=== PATIENT | male | born 1965 | race Caucasian/White ===

== ENCOUNTER 2023-10-15 10:02 | Emergency (ER) | payer OTHER ==
[~2023-10-15] VITALS: Ht 180.3 cm; Wt 86.2 kg
[~2023-10-15 10:02] MED LIST: ALBU90OI61 INH; MULVITA PO
[2023-10-15] MEDS ORDERED: NS 1,000 ML IV SCH (10:45)
[2023-10-15 10:56] LABS: BASOPHILS ABSOLUTE AUTO 0.06 K/mm3 (0.00-0.23); BASOPHILS PERCENT AUTO 0 % (0-2); EOSINOPHILS ABSOLUTE AUTO 0.11 K/mm3 (0.00-0.68); EOSINOPHILS PERCENT AUTO 1 % (0-6); Hematocrit 36.3 % (37.0-53.0); Hemoglobin 11.9 g/dL (13.5-17.5); IMMATURE GRAN PERCENT AUTO 1 % (0-1); LYMPHOCYTES ABSOLUTE AUTO 2.22 K/mm3 (0.84-5.20); LYMPHOCYTES PERCENT AUTO 15 % (21-46); MONOCYTES ABSOLUTE AUTO 0.89 K/mm3 (0.16-1.47); MONOCYTES PERCENT AUTO 6 % (4-13); Mean Corpuscular HGB 28.3 pg (26.0-34.0); Mean Corpuscular HGB Conc 32.8 g/dL (31.5-36.5); Mean Corpuscular Volume 86 fL (80-100); Mean Platelet Volume 9.2 fL (9.1-12.4); NEUTROPHILS ABSOLUTE AUTO 10.99 K/mm3 (1.96-9.15); NEUTROPHILS PERCENT AUTO 77 % (41-73); Platelet Count 499 K/mm3 (150-400); RDW Coefficient Variation 14.3 % (11.7-14.2); RDW Standard Deviation 45.2 fL (35.1-46.3); Red Blood Cell Count 4.21 M/mm3 (4.30-5.90); White Blood Cell Count 14.37 K/mm3 (4.00-11.30)
[2023-10-15] MEDS ORDERED: Mag Hydrox/AL Hydrox/Simeth 30 ML UDC PO ONE (11:10)
[2023-10-15] MEDS ORDERED: Lidocaine 2% Viscous Soln 15 ML UDC PO ONE (11:10)
[2023-10-15 11:20] LABS: Albumin, Blood 3.2 g/dL (3.4-5.0); Bilirubin, Total 0.5 mg/dL (0.1-1.0); Bun/Creatinine Ratio 61.7 (12.0-20.0); Creatinine, Blood 0.96 mg/dL (0.60-1.20); Globulin, Blood 3.1 g/dL (2.2-4.0); Magnesium, Blood 2.3 mg/dL (1.6-2.4); Total Protein, Blood 6.3 g/dL (6.4-8.2)
[2023-10-15] MEDS ORDERED: Amphetamine Sal20 MG PO (11:55)
[2023-10-15] MEDS ORDERED: NAPROXEN500 MG PO (11:55)
[2023-10-15 13:15] VITALS: BP 127/83
[2023-10-15] MEDS ORDERED: TESTOSTERO200 MG/1 M IM (16:32)
[2023-10-16] MEDS ORDERED: PANT40 PO (08:08)
== END 2023-10-15 14:32 | disposition home or self-care (01) ==
LOC: ER 10:02
PROVIDERS: Physician Assistant
DX: R55 Syncope and collapse (principal)
CPT/HCPCS: 80053; 83690; 83735; 84484; 85025; 93005; 93010; 96360; 99284-25; A9270; J7030

== ENCOUNTER 2023-10-15 14:51 | Observation (INO) | payer OTHER ==
[~2023-10-15] VITALS: Ht 177.8 cm; Wt 88.9 kg
[2023-10-15] VITALS (23 sets, daily range): BP systolic 99–129; BP diastolic 58–107
[~2023-10-15 14:51] MED LIST changes: +Amphetamine Sal20 MG PO; +NAPROXEN500 MG PO
[2023-10-15] MEDS ORDERED: Pantoprazole Sodium 40 MG Injection IV ONE ×2 (15:30→18:00)
[2023-10-15] MEDS ORDERED: Lactated Ringer's 1,000 ML IV ONE (15:30)
[2023-10-15] MEDS ORDERED: TESTOSTERO200 MG/1 M IM (16:32)
[2023-10-15] MEDS ORDERED: Lactated Ringer's 1,000 ML IV SCH (16:50)
[2023-10-15 16:54] LABS: BASOPHILS ABSOLUTE AUTO 0.02 K/mm3 (0.00-0.23); BASOPHILS PERCENT AUTO 0 % (0-2); EOSINOPHILS ABSOLUTE AUTO 0.04 K/mm3 (0.00-0.68); EOSINOPHILS PERCENT AUTO 1 % (0-6); Hematocrit 25.8 % (37.0-53.0); Hemoglobin 8.3 g/dL (13.5-17.5); IMMATURE GRAN ABSOLUTE AUTO 0.07 K/mm3 (0.00-0.10); IMMATURE GRAN PERCENT AUTO 1 % (0-1); LYMPHOCYTES ABSOLUTE AUTO 0.99 K/mm3 (0.84-5.20); LYMPHOCYTES PERCENT AUTO 12 % (21-46); MONOCYTES ABSOLUTE AUTO 0.68 K/mm3 (0.16-1.47); MONOCYTES PERCENT AUTO 8 % (4-13); Mean Corpuscular HGB 27.9 pg (26.0-34.0); Mean Corpuscular HGB Conc 32.2 g/dL (31.5-36.5); Mean Corpuscular Volume 87 fL (80-100); Mean Platelet Volume 9.4 fL (9.1-12.4); NEUTROPHILS ABSOLUTE AUTO 6.53 K/mm3 (1.96-9.15); NEUTROPHILS PERCENT AUTO 78 % (41-73); Platelet Count 341 K/mm3 (150-400); RDW Coefficient Variation 14.2 % (11.7-14.2); RDW Standard Deviation 45.4 fL (35.1-46.3); Red Blood Cell Count 2.98 M/mm3 (4.30-5.90); White Blood Cell Count 8.33 K/mm3 (4.00-11.30)
[2023-10-15] MEDS ORDERED: Midazolam HCl 1MG / ML 2ML Vial ONE (17:04)
[2023-10-15] MEDS ORDERED: propofoL 40 ML IV ONE (17:04)
[2023-10-15 17:10] LABS: International Normalized Ratio 1.03; Prothrombin Time Results 10.8 Sec (9.7-11.5)
--- NOTE | 2023-10-15 17:14 | NUR ---
10/15/23 1714 Ashleigh Booker HISTORY, CHART, MEDICATIONS AND ALLERGIES REVIEWED BEFORE START OF PROCEDURE. PATIENT CONFIRMS NPO STATUS AND AGREES WITH SCHEDULED PROCEDURE. 3-LEAD EKG REVIEWED WITH PHYSICIAN PRIOR TO START OF PROCEDURE. MONITOR INTACT WITH CONTINUOUS PULSE OXIMETRY,CAPNOGRAPHY, 3-LEAD EKG, INTERMITTENT BP. SUPPLEMENTAL O2 TO BE TITRATED THROUGHOUT PROCEDURE TO MAINTAIN O2 SATURATION ABOVE 90%. PATIENT DETERMINED TO BE ASA APPROPRIATE FOR PROPOFOL SEDATION PRIOR TO START OF PROCEDURE BY DR. HANSON.
[2023-10-15] MEDS ORDERED: TraMADol HCl 50 MG Tab PO PRN (17:35)
[2023-10-15] MEDS ORDERED: FLU VACC QS2023-24(6MOS UP)/PF 60 MCG/0.5 ML SYRINGE IM ONE (17:35)
[2023-10-15] MEDS ORDERED: Acetaminophen 325 MG TABLET PO PRN (17:35)
[2023-10-15] MEDS ORDERED: Ondansetron HCl 2 MG / ML 2ML Vial IV PRN (17:35)
[2023-10-15] MEDS ORDERED: propofoL 20 ML IV ONE (17:49)
[2023-10-15] MEDS ORDERED: Lactated Ringer's 500 ML IV SCH (18:00)
--- NOTE | 2023-10-15 18:32 | NUR ---
PT ARRIVED TO UNIT FROM EGD PT IS VERY TIRED AND GROGGY FROM ANESTHESIA. NEEDS REMINDERS TO SLOW DOWN AND CALL FOR HELP WHEN WALKING. AMBULATED WELL FROM RESTROOM TO BED. ABLE TO VOID. REPORTS PAIN TOLERABLE CURRENTLY. BROKEN TOE ON LEFT FOOT, KEEPING BOOT ON. VSS ON ARRIVAL, AT BEDSIDE. EDUCATED ON FALL SAFETY AND BED ALARM PLACED ON WHEN SHE LEAVES. PT AND AGREEABLE WITH PLAN. CALL LIGHT PROVIDED, CLEAR LIQUIDS PROVIDED.
[2023-10-16 04:35] LABS: BASOPHILS ABSOLUTE AUTO 0.05 K/mm3 (0.00-0.23); BASOPHILS PERCENT AUTO 1 % (0-2); EOSINOPHILS PERCENT AUTO 3 % (0-6); Hematocrit 23.7 % (37.0-53.0); IMMATURE GRAN ABSOLUTE AUTO 0.04 K/mm3 (0.00-0.10); IMMATURE GRAN PERCENT AUTO 1 % (0-1); LYMPHOCYTES ABSOLUTE AUTO 2.86 K/mm3 (0.84-5.20); LYMPHOCYTES PERCENT AUTO 37 % (21-46); MONOCYTES ABSOLUTE AUTO 0.71 K/mm3 (0.16-1.47); MONOCYTES PERCENT AUTO 9 % (4-13); Mean Corpuscular HGB 29.1 pg (26.0-34.0); Mean Corpuscular HGB Conc 33.8 g/dL (31.5-36.5); Mean Corpuscular Volume 86 fL (80-100); Mean Platelet Volume 9.4 fL (9.1-12.4); NEUTROPHILS ABSOLUTE AUTO 3.86 K/mm3 (1.96-9.15); NEUTROPHILS PERCENT AUTO 50 % (41-73); Platelet Count 335 K/mm3 (150-400); RDW Coefficient Variation 14.5 % (11.7-14.2); RDW Standard Deviation 45.2 fL (35.1-46.3); Red Blood Cell Count 2.75 M/mm3 (4.30-5.90); White Blood Cell Count 7.72 K/mm3 (4.00-11.30)
--- NOTE | 2023-10-16 04:50 | NUR ---
SHIFT SUMMARY PT S/P EGD. PT HAS RESTED T/O THE NIGHT, NO COMPLAINTS OF PAIN. NO S/S OF BLEEDING. PT HAS NOT HAD ANY BOWEL MOVEMENTS THIS SHIFT. VOIDING WITHOUT DIFFICULTY. VITALS ARE STABLE. PT HOPING FOR DISCHARGE TODAY. BED IN LOWEST POSITION, CALL LIGHT WITHIN REACH.
[2023-10-16 04:58] LABS: Albumin, Blood 2.5 g/dL (3.4-5.0); Bilirubin, Total 0.4 mg/dL (0.1-1.0); Calcium, Blood 7.8 mg/dL (8.5-10.1); Creatinine, Blood 0.89 mg/dL (0.60-1.20); Globulin, Blood 2.5 g/dL (2.2-4.0); Magnesium, Blood 2.4 mg/dL (1.6-2.4); Potassium, Blood 3.6 mmol/L (3.5-5.5)
[2023-10-16 05:04] VITALS: BP 117/76
[2023-10-16] MEDS ORDERED: Pantoprazole Sodium 40 MG Injection IV SCH ×2 (06:00→09:00)
[2023-10-16 07:26] VITALS: BP 124/90
--- NOTE | 2023-10-16 07:36 | NUR ---
AOX4, DENIES ANY PAIN, STATES "I FEEL LIKE CRAP" BUT PT WANTS TO LEAVE AMA, DENIES HAVING ANY MORE BLACK STOOLS, DR. DUEÑAS NOTIFIED, STATES WILL DC PT HOME, PT NOTIFIED.
[2023-10-16] MEDS ORDERED: PANT40 PO (08:08)
--- NOTE | 2023-10-16 10:15 | NUR ---
PT DC'D HOME EARLIER THIS AM, PT WAS ANXIOUS TO GO HOME, REFUSED AM ASSESSMENT THIS AM, DR. DUEÑAS SAW PT BEFORED LAUREN DC INSTRUCTIONS GIVEN, VERBALIZED UNDERSTANDING.
== END 2023-10-16 09:21 | disposition home or self-care (01) ==
LOC: ER 14:51 → SURS 14:52 → ER 16:00 → SURS 18:14
PROVIDERS: Emergency Medicine; Surgery; ADMIT Student in an Organized Health Care Education/Training Program
PROC: 0DJ08ZZ Inspection of Upper Intestinal Tract, Via Natural or Artificial Opening Endoscopic (ICD-10-PCS; principal; 2023-10-15 16:00)
DX: K22.11 Ulcer of esophagus with bleeding (principal); D64.9 Anemia, unspecified; I95.9 Hypotension, unspecified; R55 Syncope and collapse
CPT/HCPCS: 36415; 80053; 83735; 85025; 85610; 86850; 86900; 86901; 96374-59; 99284-25; C9113; J2250; J2704; J7120